=== PATIENT | female | born 1945 | race Two or more races ===

== ENCOUNTER 2023-09-11 19:08 | Emergency (ER) | payer OTHER ==
[~2023-09-11] VITALS: Ht 152.4 cm; Wt 63.5 kg
[2023-09-11] MEDS ORDERED: CARVEDILOL12.5 MG ×2 (19:39→19:42)
[2023-09-11] MEDS ORDERED: LEVOTHYROXINE25 MCG (19:40)
[2023-09-11] MEDS ORDERED: AVAPRO75 MG (19:41)
[2023-09-11] MEDS ORDERED: PREVACID15 M1 (19:41)
[2023-09-11] MEDS ORDERED: ALTACE1.25 MG (19:42)
[2023-09-11] MEDS ORDERED: INTESTINEX680 M1 (19:42)
[2023-09-11] MEDS ORDERED: SIMETHICONE80 MG (19:42)
[2023-09-11] MEDS ORDERED: PEPCID20 MG (19:43)
[2023-09-11] MEDS ORDERED: LIPITOR40 M1 (19:43)
[2023-09-11 20:55] LABS: HEMATOCRIT 45.1 % (36.0-45.00); HEMOGLOBIN 15.1 g/dL (12.0-15.00); MEAN CELL VOLUME 83.2 fL (80.00-100.00); MEAN CORPUSCULAR HEMOGLOBIN 27.8 pg (27.00-32.0); MEAN CORPUSCULAR HGB CONC 33.5 g/dl (32.0-36.0); PLATELET COUNT 234 K/uL (150-450); RED BLOOD COUNT 5.41 M/uL (4.00-6.00); RED CELL DISTRIBUTION WIDTH 13.7 % (11.5-14.5)
[2023-09-11 21:21] LABS: CALCIUM 10.2 mg/dL (8.5-10.1); CREATININE SERUM 1.01 mg/dL (0.55-1.02); GFR 53.29; POTASSIUM 4.48 mEq/L (3.5-5.1)
[2023-09-11 21:32] LABS: URINE APPEARANCE Clear; URINE BILIRRUBIN Negative (NEGATIVE); URINE BLOOD Small; URINE COLOR Yellow; URINE GLUCOSE Negative (NEGATIVE); URINE LEUKOCYTE Moderate; URINE NITRATE Negative; URINE PROTEIN Trace (NEGATIVE); URINE UROBILINOGEN 0.2 E.U./dl
[2023-09-11 21:36] LABS: URINE BACTERIA 21.4 uL (0.0-1933); URINE RBC 9.3 uL (0.0-20.8); URINE WBC 227.5 uL (0.0-23.2)
== END 2023-09-11 22:46 | disposition home or self-care (01) ==
LOC: ER 19:08
PROVIDERS: Nurse Practitioner Family
DX: N39.0 Urinary tract infection, site not specified (principal); R30.0 Dysuria; Z91.041 Radiographic dye allergy status; E03.9 Hypothyroidism, unspecified; I10 Essential (primary) hypertension; Z88.6 Allergy status to analgesic agent; Z91.013 Allergy to seafood; J32.9 Chronic sinusitis, unspecified; Z85.850 Personal history of malignant neoplasm of thyroid

== ENCOUNTER 2024-03-11 13:44 | Emergency (ER) | payer OTHER ==
[~2024-03-11] VITALS: Ht 152.4 cm; Wt 63.5 kg
[~2024-03-11 13:44] MED LIST: ALTACE1.25 MG; AVAPRO75 MG; CARVEDILOL12.5 MG; INTESTINEX680 M1; LEVOTHYROXINE25 MCG; LIPITOR40 M1; PEPCID20 MG; PREVACID15 M1; SIMETHICONE80 MG
[2024-03-11 15:59] LABS: HEMATOCRIT 44.5 % (36.0-45.00); HEMOGLOBIN 15.3 g/dL (12.0-15.00); MEAN CELL VOLUME 83.7 fL (80.00-100.00); MEAN CORPUSCULAR HEMOGLOBIN 28.8 pg (27.00-32.0); MEAN CORPUSCULAR HGB CONC 34.4 g/dl (32.0-36.0); PLATELET COUNT 249 K/uL (150-450); RED BLOOD COUNT 5.32 M/uL (4.00-6.00); RED CELL DISTRIBUTION WIDTH 13.7 % (11.5-14.5)
[2024-03-11 16:30] LABS: CALCIUM 10.4 mg/dL (8.5-10.1); CREATININE SERUM 0.79 mg/dL (0.55-1.02); GFR 70.57; POTASSIUM 4.21 mEq/L (3.5-5.1)
[2024-03-11] MEDS ORDERED: ZYRTEC10 M3 PO (17:53)
== END 2024-03-11 18:12 | disposition home or self-care (01) ==
LOC: ER 13:46
PROVIDERS: General Practice
DX: R53.81 Other malaise (principal); R09.81 Nasal congestion; Z20.822 Contact with and (suspected) exposure to COVID-19; Z88.5 Allergy status to narcotic agent; Z88.8 Allergy status to other drugs, medicaments and biological substances; Z91.041 Radiographic dye allergy status